=== PATIENT | female | born 1960 | race Caucasian/White ===

== ENCOUNTER → 2023-12-30 | Day surgery (SDC) | payer OTHER ==
[2023-12-30 07:35] VITALS: BP 145/95; PULSE 94; RESP 16; TEMP 97.8
--- NOTE | 2023-12-30 08:42 | P.GSHP ---
History of Present Illness H&P Date: 12/30/23 Chief Complaint: abnormal left breast mammogram Helen is a 63 year old femlae seen in consultation for Dr. Srinivasan regarding an abnormal left breast mammogram. The patient had a bilateral mammogram on 12-13-23 which was personally reviewed with Dr. Holly and this led to a diagnostic left breast mammogram. The initial left breast diagnostic mammogram revealed suspecious calcification in the medial inner left breast, however when the x-rays were repeated the medical calcifications were felt to be less suspecious and the patient was noted to have calcifications of concern int he more lateral left breast. Review with Dr. holly led to recommendation of stero biopsy of the more lateral group of calcifications with waiting for the pathology report before pursuing the more medical group. She does not feel any lumps masses or nodules of concern in either breast. She has not had any surgery on her breast. She is not complaining of any recent trauma or infection in the breast. She is not complaining of any nipple discharge or skin changes. caffeine: occasional nicotine: none chocolate:daily BCP: 20 years hormones: none Family History: sister: leukemia nephew: leukemia sister: lung cancer smoker Hormonal History: menarche: 14 M2, breast fed: yes, age at first : 33 menoapuse: 57 Surgical History: gallbladder Medical History: none Social History: nicotine: none alcohol: beer 1 time a week drugs: none - Constitutional Constitutional: Denies chills, Denies fever - EENT Eyes: denies blurred vision, denies pain Ears: deny: decreased hearing, tinnitus Ears, nose, mouth and throat: Denies headache, Denies sore throat - Breasts Breasts: bilateral: as per HPI - Cardiovascular Cardiovascular: Denies chest pain, Denies shortness of breath - Respiratory Respiratory: Reports cough - Gastrointestinal Comment: GERD - Genitourinary (Female) Genitourinary: Denies dysuria, Denies hematuria - Menstruation Menstruation: Reports postmenopausal - Musculoskeletal Musculoskeletal: Denies myalgias - Integumentary Integumentary: Denies pruritus, Denies rash - Neurological Neurological: Denies numbness, Denies weakness - Psychiatric Psychiatric: Reports anxiety, Reports depression - Endocrine Endocrine: Denies fatigue, Denies weight change - Hematologic/Lymphatic Comment: none - Allergic/Immunologic Allergic/Immunologic: Reports seasonal allergies Past Medical History Additional Past Medical History / Comment(s): mario ybarra History of Any Multi-Drug Resistant Organisms: None Reported Past Surgical History: Cholecystectomy Past Anesthesia/Blood Transfusion Reactions: Postoperative Nausea & Vomiting (PONV) Past Psychological History: Anxiety, Depression Smoking Status: Never smoker Past Alcohol Use History: Occasional Past Drug Use History: None Reported Medications and Allergies Home Medications Medication Instructions Recorded Confirmed Type Fexofenadine HCl [Kavya Allergy] 60 mg PO DAILY 12/23/23 12/30/23 History Triamcinolone Acetonide [Nasacort] 1 spray EA NOSTRIL DAILY 12/23/23 12/30/23 History Allergies Allergy/AdvReac Type Severity Reaction Status Date / Time Sulfa (Sulfonamide Allergy Rash/Hives Verified 12/30/23 07:23 Antibiotics) Surgical - Exam Vital Signs Temp Pulse Resp BP 97.8 F 94 16 145/95 12/30/23 07:24 12/30/23 07:24 12/30/23 07:24 12/30/23 07:24 - General moderate distress - Eyes normal ocular movement - Neck trachea midline - Respiratory normal respiratory effort, clear to auscultation - Cardiovascular Heart Sounds: normal: S1, S2 - Abdomen Abdomen: soft, non tender, no guarding, no rigid, no rebound - Integumentary normal turgor - Neurologic no disoriented, no combative - Musculoskeletal normal gait - Psychiatric oriented to time, oriented to person, oriented to place, speech is normal, memory intact Breast Exam: BRA: 36B Inspection: Bilateral grade 2 ptosis Palpation: Right breast: Multi positional exam fibrocystic changes no dominant masses or nodules of concern Right axilla: No adenopathy of concern Left breast: Multi positional exam fibrocystic changes no dominant masses or nodules of concern Left axilla: No adenopathy of concern Results Mammogram reviewed in detail with Dr. Mosqueda, the patient has no lesions of concern in the right breast, In the left breast there were initially noted to be some calcifications of concern in the medial lower aspect, however with repeat views these were felt to be less of concern then some more lateral calcifications for which stereotactic core biopsy was recommended. If the stereotactic core biopsy is benign of the more suspicious lateral lesions then we will follow conservatively the more medial lesions. Assessment and Plan Assessment: Impression: Radiographic abnormality left breast microcalcifications of concern lateral mid breast Plan: Stereotactic core biopsy Risk and benefits of the procedure discussed with the patient. Risk include but are not limited to bleeding, infection, reaction to the anesthetic. If the area of concern is discordant then further tissue acquisition may be necessary. The patient understands the risks and wishes to proceed. CC: Dr. Srinivasan
--- NOTE | 2023-12-30 09:41 | P.PCN ---
Date of Procedure: 12/30/23 Preoperative Diagnosis: Microcalcifications of concern left breast Postoperative Diagnosis: Same Procedure(s) Performed: Stereotactic core biopsy microcalcifications of concern left breast Anesthesia: local Surgeon: Taylor Coates Pathology: other (Graph of specimen reveals microcalcifications of concern left breast) Condition: stable Disposition: same day Indications for Procedure: Microcalcifications of concern left breast Operative Findings: Radiograph of specimen reveals microcalcifications of concern Description of Procedure: Helen is a 63-year-old white female who on a routine mammogram was noted to have microcalcifications of concern in her left breast. This was reviewed in detail with Dr. Mosqueda and an area of concern was targeted for stereotactic core biopsy. The patient understood the risks and benefits and wished to proceed. The patient was brought to the stereotactic core biopsy room. She was positioned in the upright chair. A blocking machine tender film was obtained. A lateral to medial approach was utilized. The area of concern was identified. The lesion was targeted. This was done in conjunction with Dr. Mosqueda from radiology. The breast was prepped using ChloraPrep. 20 cc of 1% lidocaine were used to anesthetize the area of concern. A 9 gauge vacuum-assisted core rotating biopsy needle was driven to the correct coordinates. A prefire film was obtained. The needle was noted to be in the correct location. The needle was fired. A post fire film was obtained. The needle was noted to be in the correct location. 13 core biopsy specimens were obtained. Radiograph of the specimen revealed the calcifications of concern had been removed. A secure paulino Top-Hat clip was deployed. The clip was noted to be in the correct location. The specimen was sent to pathology. The patient will follow-up with Dr. Yeager. The patient tolerated the procedure in stable condition.
--- NOTE | 2024-01-04 08:59 | MM ---
Date of Procedure: 12/30/23 Preoperative Diagnosis: Microcalcifications of concern left breast Postoperative Diagnosis: Same Procedure(s) Performed: Stereotactic core biopsy microcalcifications of concern left breast Anesthesia: local Surgeon: Taylor Coates Pathology: other (Graph of specimen reveals microcalcifications of concern left breast) Condition: stable Disposition: same day Indications for Procedure: Microcalcifications of concern left breast Operative Findings: Radiograph of specimen reveals microcalcifications of concern Description of Procedure: Helen is a 63-year-old white female who on a routine mammogram was noted to have microcalcifications of concern in her left breast. This was reviewed in detail with Dr. Mosqueda and an area of concern was targeted for stereotactic core biopsy. The patient understood the risks and benefits and wished to proceed. The patient was brought to the stereotactic core biopsy room. She was positioned in the upright chair. A pellet post inspector film was obtained. A lateral to medial approach was utilized. The area of concern was identified. The lesion was targeted. This was done in conjunction with Dr. Mosqueda from radiology. The breast was prepped using ChloraPrep. 20 cc of 1% lidocaine were used to anesthetize the area of concern. A 9 gauge vacuum-assisted core rotating biopsy needle was driven to the correct coordinates. A prefire film was obtained. The needle was noted to be in the correct location. The needle was fired. A post fire film was obtained. The needle was noted to be in the correct location. 13 core biopsy specimens were obtained. Radiograph of the specimen revealed the calcifications of concern had been removed. A secure paulino Top-Hat clip was deployed. The clip was noted to be in the correct location. The specimen was sent to pathology. The patient will follow-up with Dr. Yeager. The patient tolerated the procedure in stable condition. The post stereo biopsy radiograph showed the clip to be about 1 cm anterior and inferior to the biopsy cavity. This was reviewed with Dr. Mosqueda. [facility]
== END ==
LOC: RADMAMWWP 07:13
PROVIDERS: ATTEND Surgery
DX: N60.12 Diffuse cystic mastopathy of left breast (principal); F41.9 Anxiety disorder, unspecified; F32.A Depression, unspecified; F10.90 Alcohol use, unspecified, uncomplicated; Z80.1 Family history of malignant neoplasm of trachea, bronchus and lung; Z90.49 Acquired absence of other specified parts of digestive tract; Z88.2 Allergy status to sulfonamides; Z79.899 Other long term (current) drug therapy
CPT/HCPCS: 88305; 19081; A4648; J2001

== ENCOUNTER → 2024-01-12 | Outpatient (CLI) | payer OTHER ==
--- NOTE | 2024-01-12 10:45 | P.PN ---
Subjective Progress Note Date: 01/12/24 Helen is status post stero biopsy of the left breast on 12-30-23. Her pathology was benign concordant. She tolerated the procedure without difficulty. [facility] risk of breast cancer is 6%. This was on her risk assessment from mammogram done at [facility]; No 5-year risk assessment was performed. The patient would not have chemoprophylaxis no matter what. Objective - Vital Signs Vital signs: Vital Signs Temp 98.2 F 01/12/24 10:35 Pulse 87 01/12/24 10:35 Resp 15 01/12/24 10:35 BP 160/85 01/12/24 10:35 Pulse Ox 97 01/12/24 10:35 FiO2 Intake & Output 01/11/24 01/12/24 01/12/24 18:59 06:59 18:59 Weight 79.379 kg - Constitutional General appearance: Present: cooperative - EENT Eyes: Present: EOMI ENT: Present: hearing grossly normal - Neck Neck: Present: normal ROM - Respiratory Respiratory: bilateral: CTA - Cardiovascular Heart sounds: normal: S1, S2 - Integumentary Integumentary: Present: normal turgor - Musculoskeletal Musculoskeletal: Present: gait normal - Psychiatric Psychiatric: Present: A&O x's 3, appropriate affect, intact judgment & insight - Additional findings Additional findings: Biopsy site left breast clean and dry, no evidence of a hematoma or infection There is ecchymosis in the inferior aspect of the breast which is resolving Assessment and Plan 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 Srinivasan
[2024-01-12 11:09] VITALS: BP 160/85; PULSE 87; RESP 15; TEMP 98.2
== END | disposition home or self-care (01) ==
LOC: WWCWWP 09:47
PROVIDERS: ATTEND Surgery
DX: N60.02 Solitary cyst of left breast (principal); Z88.2 Allergy status to sulfonamides